=== PATIENT | female | born 1990 | race African-American/Black ===

== ENCOUNTER 2017-01-13 19:08 | Emergency (ER) | payer OTHER ==
[~2017-01-13] VITALS: Ht 154.9 cm; Wt 65.0 kg
[2017-01-13] MEDS ORDERED: IBUP-1114 PO (19:30)
[2017-01-13] MEDS ORDERED: HYDR100C PO (19:30)
[2017-01-13] MEDS ORDERED: SERO1TAB2 PO (19:30)
[2017-01-13] MEDS ORDERED: BUPR50TA PO (19:30)
--- NOTE | 2017-01-13 20:02 | REP ---
HISTORY: Pain after trauma. COMPARISON: None. FINDINGS: No acute fracture or destructive osseous lesion. The mortise is intact. Signed by Nilo Castro DO 01/14/2017 09:38 A
[2017-01-13] MEDS ORDERED: NORCO 5/325MG TABLET (BULK FOR ED) PO ONE (21:45)
[2017-01-13] MEDS ORDERED: IBUPROFEN 600 MG TAB PO ONE (21:45)
[2017-01-13 22:28] VITALS: BP 120/80
== END 2017-01-13 22:36 | disposition home or self-care (01) ==
LOC: M ED 19:08
DX: S93.602A Unspecified sprain of left foot, initial encounter (principal); S93.402A Sprain of unspecified ligament of left ankle, initial encounter; Y92.139 Unspecified place military base as the place of occurrence of the external cause; X58.XXXA Exposure to other specified factors, initial encounter; Y93.02 Activity, running; Y99.8 Other external cause status; Z79.899 Other long term (current) drug therapy; Z91.040 Latex allergy status; Z88.1 Allergy status to other antibiotic agents; Z88.2 Allergy status to sulfonamides; Z91.012 Allergy to eggs

== ENCOUNTER 2017-04-28 00:29 | Emergency (ER) | payer OTHER ==
[2017-04-28] MEDS: KETOROLAC 30 MG/ML VIAL (J1885) IM (03:29)
== END 2017-04-28 03:59 | disposition home or self-care (01) ==
LOC: M ED 00:29
DX: N64.4 Mastodynia (principal); N60.01 Solitary cyst of right breast; F41.9 Anxiety disorder, unspecified; F33.9 Major depressive disorder, recurrent, unspecified; F17.210 Nicotine dependence, cigarettes, uncomplicated; Z79.899 Other long term (current) drug therapy; Z91.040 Latex allergy status; Z88.1 Allergy status to other antibiotic agents; Z88.2 Allergy status to sulfonamides; Z91.012 Allergy to eggs; Z98.890 Other specified postprocedural states; Z85.43 Personal history of malignant neoplasm of ovary
CPT/HCPCS: J1885

== ENCOUNTER 2018-04-22 22:33 | Emergency (ER) | payer OTHER ==
[~2018-04-22] VITALS: Ht 154.9 cm; Wt 69.1 kg
[~2018-04-22 22:33] MED LIST: BUPR50TA PO; HYDR100C PO; IBUP-1114 PO; SERO1TAB2 PO
[2018-04-22] MEDS ORDERED: ESCI20TA (22:44)
[2018-04-22] MEDS ORDERED: NORCOTAB PO (23:26)
[2018-04-22] MEDS ORDERED: NORCO, ANEXSIA 5/325MG TABLET (HYDROcodone/ACETAMINOPHEN) PO ONE (23:30)
[2018-04-22 23:41] VITALS: BP 123/60
--- NOTE | 2018-04-23 01:36 | REP ---
Clinical: Pain with recent Trauma. Technique: AP, lateral views right tibia / fibula . Findings: The osseous structures and joint spaces are intact and normal. There is no evidence for acute fracture or dislocation. Surrounding soft tissues are unremarkable. No subcutaneous emphysema or radiodense foreign body. Impression: Normal examination . No acute fracture or dislocation. Electronically Signed by Delta Dennis MD 04/23/2018 01:28 A
--- NOTE | 2018-04-23 01:37 | REP ---
Clinical: Pain with recent trauma. Technique: AP and frog lateral views of the right femur. Findings: No acute fracture or dislocation. Skeletal structures, joint spaces, and surrounding soft tissues are normal. No subcutaneous emphysema or radiodense foreign body. Impression: No acute fracture or dislocation. Electronically Signed by Delta Dennis MD 04/23/2018 01:29 A
== END 2018-04-22 23:51 | disposition home or self-care (01) ==
LOC: M ED 22:33
DX: S83.91XA Sprain of unspecified site of right knee, initial encounter (principal); X58.XXXA Exposure to other specified factors, initial encounter; Y92.89 Other specified places as the place of occurrence of the external cause; Y99.0 Civilian activity done for income or pay; F33.9 Major depressive disorder, recurrent, unspecified; F41.9 Anxiety disorder, unspecified; Z79.899 Other long term (current) drug therapy; Z88.2 Allergy status to sulfonamides; F17.210 Nicotine dependence, cigarettes, uncomplicated

== ENCOUNTER 2018-07-05 17:14 | Emergency (ER) | payer OTHER ==
[~2018-07-05] VITALS: Ht 154.9 cm; Wt 76.7 kg
[~2018-07-05 17:14] MED LIST changes: +ESCI20TA; +HYDR-3715 PO
[2018-07-05] MEDS ORDERED: NS 1,000 ML IV ONE ×2 (17:30→17:45)
[2018-07-05 17:54] LABS: BASO % 0.4 % (0.0-1.0); EOS # 0.1 10^3/uL (0.0-0.50); EOS % 1.2 % (0.0-3.0); HEMATOCRIT 36.6 % (36.0-47.0); HEMOGLOBIN 12.3 g/dl (12.0-15.5); LYMPH # 2.5 10^3/uL (1.5-6.5); LYMPH % 47.7 % (24.0-44.0); MEAN CORPUSCULAR HEMOGLOBIN 31.1 pg (27.0-33.0); MEAN CORPUSCULAR HGB CONC 33.6 g/dl (32.0-36.5); MEAN CORPUSCULAR VOLUME 92.7 fl (80.0-96.0); MONO # 0.4 10^3/uL (0.0-0.8); MONO % 7.8 % (0.0-5.0); NEUTROPHILS # 2.2 10^3/uL (1.8-7.7); NEUTROPHILS % 42.7 % (36.0-66.0); PLATELET COUNT, AUTOMATED 234 10^3/uL (150-450); RED BLOOD COUNT 3.95 10^6/uL (4.00-5.40); WHITE BLOOD COUNT 5.1 10^3/uL (4.0-10.0)
[2018-07-05 18:32] LABS: ACETAMINOPHEN LEVEL < 2.0 UG/ML (10.0-30.0); ALBUMIN 3.7 GM/DL (3.2-5.2); ALT/SGPT 27 U/L (12-78); BILIRUBIN,DIRECT < 0.1 MG/DL (0.0-0.2); BILIRUBIN,TOTAL 0.3 MG/DL (0.2-1.0); BLOOD UREA NITROGEN 8 MG/DL (7-18); CALCIUM LEVEL 8.1 MG/DL (8.5-10.1); CARBON DIOXIDE LEVEL 28 MEQ/L (21-32); CHLORIDE LEVEL 112 MEQ/L (98-107); CPK CREATINE PHOSPHOKINASE 268 U/L (26-192); CREATININE FOR GFR 0.76 MG/DL (0.55-1.30); ETHYL ALCOHOL (ETHANOL) < 0.003 % (0.000-0.010); GLOMERULAR FILTRATION RATE > 60.0 (>60); GLUCOSE, FASTING 71 MG/DL (70-100); MAGNESIUM LEVEL 2.2 MG/DL (1.8-2.4); POTASSIUM SERUM 3.5 MEQ/L (3.5-5.1); SALICYLATE LEVEL 2.7 MG/DL (5.0-30.0); SODIUM LEVEL 144 MEQ/L (136-145); TOTAL PROTEIN 6.7 GM/DL (6.4-8.2)
[2018-07-05 18:33] LABS: AMPHETAMINES LEVEL URINE NEGATIVE (NEGATIVE); BARBITURATES URINE NEGATIVE (NEGATIVE); BENZODIAZEPINES URINE POSITIVE (NEGATIVE); CANNABINOIDS URINE NEGATIVE (NEGATIVE); COCAINE METABOLITE URINE NEGATIVE (NEGATIVE); METHADONE URINE NEGATIVE (NEGATIVE); OPIATES URINE POSITIVE (NEGATIVE); PHENCYCLIDINE URINE NEGATIVE (NEGATIVE)
[2018-07-05 19:31] LABS: ABG BASE EXCESS -3.1 (-2.0-2.0); ABG HCO3 21.9 MEQ/L (22.0-26.0); ABG O2 SATURATION 97.2 % (95.0-99.0); ABG PARTIAL PRESSURE CO2 39.2 mmHg (35.0-45.0); ABG PARTIAL PRESSURE O2 94.6 mmHg (75.0-100.0); ABG STANDARD HCO3 21.9 MEQ/L (22.0-26.0); ABG TOTAL CO2 23.1 MEQ/L (22.0-29.0)
[2018-07-05 19:34] LABS: ABG pH (ARTERIAL) 7.365 UNITS (7.350-7.450)
--- NOTE | 2018-07-05 19:36 | REP ---
Clinical: Drug overdose . Comparison: None . Findings: The mediastinum and cardiac silhouette are stable and within normal limits for portable technique. The lung renee demonstrate mild increased perihilar and basilar markings which suggest bronchitis and mild basilar atelectasis. No consolidation. No effusion. No pneumothorax. Skeletal structures intact. Impression: Bronchitis and mild basilar atelectasis suggested. Electronically Signed by Delta Dennis MD 07/05/2018 07:28 P
[2018-07-05 23:45] VITALS: BP 120/68
--- NOTE | 2018-07-06 06:37 | ECGEPIP ---
Stationary ECG Study [facility] - ED Test Date: 2018-07-05 Pat Name: NUHA BRITT Department: Room: - Gender: F [place] Man: GINNY : 1990 Requested By: Dea Beasley Order Number: [id number] Reading MD: Dea Beasley Measurements Intervals Henry Rate: 85 P: 51 MD: 100 QRS: 61 QRSD: 85 T: 26 QT: 356 QTc: 423 Interpretive Statements SINUS RHYTHM WITH SHORT MD INTERVAL NO OLD ECG FOR COMPARISON Electronically Signed On 07-06-2018 6:37:00 EDT by Dea Beasley
== END 2018-07-06 00:21 | disposition home or self-care (01) ==
LOC: M ED 17:14 → EDBD 17:14 → M ED 07-06 00:21
DX: T42.72XA Poisoning by unspecified antiepileptic and sedative-hypnotic drugs, intentional self-harm, initial encounter (principal); X58.XXXA Exposure to other specified factors, initial encounter; Y92.89 Other specified places as the place of occurrence of the external cause; F13.10 Sedative, hypnotic or anxiolytic abuse, uncomplicated; F17.200 Nicotine dependence, unspecified, uncomplicated; Z91.012 Allergy to eggs; Z91.040 Latex allergy status; Z88.2 Allergy status to sulfonamides
CPT/HCPCS: 36415; 36600; 71045; 80048; 80076; 80307; 82550; 82803; 83605; 83735; 84443; 85025; 93005; 93041; 96360; 96361; 99285; G0480

== ENCOUNTER → 2018-10-26 | Outpatient (CLI) | payer OTHER ==
--- NOTE | 2018-10-26 11:14 | REP ---
MRI LEFT KNEE: TECHNIQUE: Axial proton density fat saturation, sagittal proton density T2 STIR, water excitation, coronal proton density, proton density fat saturation. Menisci are intact. There is no evidence of a meniscal tear. The cruciate and collateral ligaments are intact. The extensor mechanism is intact. There is some very mild increased signal on T2-weighted images in the distal quadriceps tendon at its insertion onto the superior pole of the patella which could represent mild tendonitis or minor strain. No osteochondral defect is seen. There appears to be mild chondromalacia of the femoral condyles and tibial plateaus. Medial and lateral patellar retinacula are intact. There is no bone marrow signal. There is no bone marrow edema or occult fracture. There is a normal amount of joint fluid. No popliteal cyst is seen. IMPRESSION: Mild ill-defined high signal in the distal quadriceps tendon at its insertion onto the superior pole of the patella may represent mild tendonitis or mild strain. 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 No other evidence of internal derangement. Electronically Signed by Sony Diaz MD 10/28/2018 07:22 P
== END ==
LOC: M RAD 07:45
PROVIDERS: ATTEND Orthopaedic Surgery
DX: M25.562 Pain in left knee (principal)

== ENCOUNTER 2018-11-29 16:00 | Emergency (ER) | payer OTHER ==
[~2018-11-29] VITALS: Ht 154.9 cm; Wt 70.0 kg
[2018-11-29] MEDS ORDERED: ACET1TAB55 (16:17)
[2018-11-29] MEDS ORDERED: IBUP-1022 (16:17)
[2018-11-29] MEDS ORDERED: DIAZ5TAB (16:17)
[2018-11-29 18:18] LABS: HEMATOCRIT 40.5 % (36.0-47.0); HEMOGLOBIN 13.8 g/dl (12.0-15.5); MEAN CORPUSCULAR HEMOGLOBIN 31.5 pg (27.0-33.0); MEAN CORPUSCULAR HGB CONC 34.1 g/dl (32.0-36.5); MEAN CORPUSCULAR VOLUME 92.5 fl (80.0-96.0); PLATELET COUNT, AUTOMATED 297 10^3/uL (150-450); RED BLOOD COUNT 4.38 10^6/uL (4.00-5.40); WHITE BLOOD COUNT 5.8 10^3/uL (4.0-10.0)
[2018-11-29 18:41] LABS: ACETAMINOPHEN LEVEL < 2.0 UG/ML (10.0-30.0); ALT/SGPT 37 U/L (12-78); BILIRUBIN,DIRECT 0.2 MG/DL (0.0-0.2); BILIRUBIN,TOTAL 0.6 MG/DL (0.2-1.0); BLOOD UREA NITROGEN 9 MG/DL (7-18); CALCIUM LEVEL 9.7 MG/DL (8.5-10.1); CARBON DIOXIDE LEVEL 28 MEQ/L (21-32); CHLORIDE LEVEL 106 MEQ/L (98-107); CREATININE FOR GFR 0.75 MG/DL (0.55-1.30); ETHYL ALCOHOL (ETHANOL) < 0.003 % (0.000-0.010); GLOMERULAR FILTRATION RATE > 60.0 (>60); GLUCOSE, FASTING 81 MG/DL (70-100); POTASSIUM SERUM 4.2 MEQ/L (3.5-5.1); SALICYLATE LEVEL 4.1 MG/DL (5.0-30.0); SODIUM LEVEL 140 MEQ/L (136-145); TOTAL PROTEIN 7.9 GM/DL (6.4-8.2)
[2018-11-29 18:51] LABS: AMPHETAMINES LEVEL URINE NEGATIVE (NEGATIVE); BARBITURATES URINE NEGATIVE (NEGATIVE); BENZODIAZEPINES URINE POSITIVE (NEGATIVE); CANNABINOIDS URINE NEGATIVE (NEGATIVE); COCAINE METABOLITE URINE NEGATIVE (NEGATIVE); METHADONE URINE NEGATIVE (NEGATIVE); OPIATES URINE NEGATIVE (NEGATIVE); PHENCYCLIDINE URINE NEGATIVE (NEGATIVE)
[2018-11-29 19:19] VITALS: BP 123/80
== END 2018-11-29 19:20 | disposition home or self-care (01) ==
LOC: M ED 16:00
DX: F43.20 Adjustment disorder, unspecified (principal); Z88.1 Allergy status to other antibiotic agents; Z88.2 Allergy status to sulfonamides; Z88.5 Allergy status to narcotic agent; Z91.012 Allergy to eggs; Z91.040 Latex allergy status; Z91.048 Other nonmedicinal substance allergy status
CPT/HCPCS: 36415; 80048; 80076; 80307; 84443; 85027; 99284; G0480

== ENCOUNTER → 2019-05-09 | Outpatient (REF) | payer OTHER ==
[~2019-05-09] MED LIST changes: +ACET1TAB55; +DIAZ5TAB; +IBUP-1022
[2019-05-09 21:53] LABS: CHLAMYDIA DNA AMPLIFICATION NEGATIVE (NEGATIVE); GC DNA AMPLIFICATION NEGATIVE (NEGATIVE)
== END ==
LOC: M SFHCLERA 17:52
PROVIDERS: ATTEND Nurse Practitioner Family
DX: R30.0 Dysuria (principal)
CPT/HCPCS: 81002; 87086; 87661; 96372; G0463; J0696

== ENCOUNTER 2019-11-22 14:08 | Emergency (ER) | payer OTHER ==
[~2019-11-22 14:08] MED LIST changes: +BUPR-69 PO; -BUPR50TA PO
== END 2019-11-22 16:47 | disposition home or self-care (01) ==
LOC: M ED 14:08
DX: F43.20 Adjustment disorder, unspecified (principal); F33.9 Major depressive disorder, recurrent, unspecified; F41.9 Anxiety disorder, unspecified; Z88.2 Allergy status to sulfonamides; Z88.5 Allergy status to narcotic agent; Z79.899 Other long term (current) drug therapy